=== PATIENT | female | born 1960 | race Caucasian/White ===

== ENCOUNTER → 2017-03-04 | Outpatient (CLI) | payer OTHER | LOC: FIMAGING 10:37 | PROVIDERS: ATTEND Obstetrics & Gynecology Gynecology | DX: Z12.31 Encounter for screening mammogram for malignant neoplasm of breast (principal) | CPT/HCPCS: G0202 ==

== ENCOUNTER 2017-03-14 12:07 | Emergency (ER) | payer OTHER ==
--- NOTE | 2017-03-14 12:27 | CPEKG ---
Heart Rate: 63 RR Interval: 952 P-R Interval: 144 QRSD Interval: 82 QT Interval: 412 QTC Interval: 422 P Windham: 70 QRS [place]ham: 66 T Wave [place]ham: 8 EKG Severity - NORMAL ECG - EKG Impression: SINUS RHYTHM Electronically Signed By: Ki Plascencia 14-Mar-2017 15:18:08
--- NOTE | 2017-03-14 13:14 | EDPHY ---
H & P Time Seen by Provider: 03/14/17 12:24 HPI/ROS: HPI Forgetful, visual changes. 56-year-old female by private vehicle. This patient reports that she woke up yesterday morning and felt groggy. She reports that she then realized that she had for gotten her e-mail address and other simple things that she usually remembers. She reports that through the day she did feel better and her forgetfulness resolved. She reports that then yesterday evening she developed visual symptoms which she describes as angular colored shapes with some decreased peripheral vision. She also reports having some tingling in her left upper extremity associated with these visual symptoms. She reports that she has had this identical sensation in the past associated with her migraine headaches. This then resolved. She reports that this morning she woke up again felt groggy. She reports that she then developed similar visual symptoms with left upper extremity tingling and forgetfulness. She again states that these visual symptoms and the tingling in the left upper extremity identical to previous migraine headaches that she has had. She reports however that the forgetfulness is something new as best she can recall. She reports the symptoms have now resolved she came to the emergency department for evaluation. ROS: Constitutional: No fever, no chills. As above. Eyes: No discharge. As above. ENT: No sore throat. No nasal congestion or rhinorrhea. Respiratory: No cough. No shortness of breath. Cardiac: No chest pain, no palpitations. Gastrointestinal: No abdominal pain, no vomiting, no diarrhea. Genitourinary: No hematuria. No dysuria or increased frequency with urination. Musculoskeletal: No back pain. No neck pain. No myalgias or arthralgias. Skin: No rashes. Neurological: No headache. No focal weakness or altered sensation except noted except noted. Past medical history: Colitis. Migraine headaches which she has had since childhood. Social history: Nonsmoker. No alcohol. . Physical Exam: General Appearance: Alert, no distress. This patient is responding to questions appropriately and in full sentences. This patient appears well- hydrated and well-nourished. Eyes: Pupils equal and round no pallor or injection. No lid edema, erythema or injection. No nystagmus. No photophobia. ENT, Mouth: Mucous membranes are moist. The pharyngeal tissues are unremarkable. No edema or swelling. No asymmetry suggestive of abscess. No erythema or exudates. No tongue lacerations or abrasions. Respiratory: There are no retractions, lungs are clear to auscultation with good air movement bilaterally. Cardiovascular: Regular rate and rhythm. No murmur. Gastrointestinal: Abdomen is soft and nontender, no masses, bowel sounds normal. No focal tenderness at McBurney's point. No Lawson sign. Neurological: Motor sensory function is grossly intact. Cranial nerves are normal. Gait is normal. Skin: Warm and dry, no rashes. Musculoskeletal: Neck is supple and nontender. No pain on flexion of the neck. Extremities are symmetrical. All joints range without pain or impingement. Psychiatric: No agitation. No depression. Database: EKG: EKG time is 12:24 p.m.; EKG shows a narrow complex normal sinus rhythm with a ventricular rate of 63. The OR, QRS, QT intervals are within normal limits. There are no ST-T wave changes indicative of ischemic or injury pattern. No evidence of right heart strain. Interpreted by me. Imaging: MRI of brain noncontrast: Negative. Results were discussed with staff radiologist Dr. Dwain Dallas. Procedures: Emergency department course: Vital signs reviewed and are unremarkable. She is afebrile. The patient's neurologic exam is nonfocal. She reports resolution of symptoms. I feel that TIA and CVA unlikely. Her presentation is more consistent with an a migraine syndrome and transient global amnesia. I discussed MR imaging with her. She is not sure that she wants to do this. She will call her to discuss. 1:30 a.m., the patient's is at the bedside. She would like to get an MRI of her brain for further evaluation. This has been ordered. 3:00 p.m., patient re-evaluated, repeat neurologic Assessment is nonfocal. Results of MRI discussed. She feels comfortable going home with her who is at bedside. I feel she is safe for discharge. I will have her follow up with Dr. Ferny Bell or 1 of his partners with the neurology service. Return to emergency department precautions have been reviewed with her. All of her questions were answered. She was discharged in good condition. Differential Diagnosis: The differential diagnosis on this patient includes but is not limited to migraine syndrome, transient global amnesia. CVA, TIA unlikely. This represents a partial list of diagnoses considered. These considerations are based on history, physical exam, past history, reassessment and diagnostic testing. Smoking Status: Never smoked Constitutional: Initial Vital Signs Temperature (C) 36.3 C 03/14/17 12:11 Heart Rate 66 03/14/17 12:11 Respiratory Rate 18 03/14/17 12:11 Blood Pressure 148/73 H 03/14/17 12:11 O2 Sat (%) 98 03/14/17 12:11 O2 Delivery Mode Room Air Allergies/Adverse Reactions: No Known Allergies Allergy (Unverified 07/21/12 11:12) Home Medications: Medication Instructions Recorded No Home Meds 07/21/12 Ondansetron Odt [Zofran Odt 4 mg 4 mg PO Q4PRN PRN #7 tab 07/21/12 (*)] oxyCODONE/APAP 5/325 [Percocet 1 - 2 tab PO Q4PRN PRN #11 tab 07/21/12 5/325 (*)] Medical Decision Making - Diagnostics Imaging Results: Imaging Impressions Brain MRI 03/14/17 13:30 Impression: Normal MRI of the brain without contrast. Results called to Dr. Harvey at 2:50 PM. Departure - Departure Disposition: Home, Routine, Self-Care Clinical Impression: Migraine equivalent syndrome Condition: Good Instructions: Migraine Headache (ED), Transient Global Amnesia (ED) Additional Instructions: Read and follow provided instructions. Follow-up with Neurology, Dr. Ferny Bell, or 1 of his partners in 2-3 days for re-evaluation. Return to the emergency department for worsening symptoms, worsening headache, changes in vision or other serious concerns. Referrals: Patient,NotPresent [Primary Care Provider] - As per Instructions
[2017-03-14 14:43] VITALS: PULSE 56; RESP 20; TEMP 97.9
[2017-03-14 15:40] VITALS: BP 106/62; O2SAT 96
== END 2017-03-14 15:40 | disposition home or self-care (01) ==
DX: G43.809 Other migraine, not intractable, without status migrainosus (principal)

== ENCOUNTER 2017-10-04 15:29 | Emergency (ER) | payer OTHER ==
[2017-10-04 15:52] VITALS: TEMP 98.2; O2SAT 99
--- NOTE | 2017-10-04 16:59 | EDPHY ---
H & P Stated Complaint: multiple cat bites and scratches r arm Time Seen by Provider: 10/04/17 16:58 HPI/ROS: HPI: This is a 57-year-old female who presents with Chief Complaint: multiple cat bites and scratches r arm Location: Right arm Quality: Multiple scratches and bites Duration: 1-3 hours prior to arrival Signs and Symptoms: No bleeding, no radiation, no numbness, no weakness, no tingling, no decreased range of motion, no swelling, no pain Timing: Acute Severity: [id number] Context: Patient is right-hand dominant, rescues cats in the area, was playing with her cat when he all a sudden began to attack her. He bit and scratched her right forearm. It started to bleed and patient applied direct pressure. She then washer arm with mild soap and water and applied bacitracin. She reports that the cat vaccinations are up-to-date. The cat has been aggressive before and they have decided to put the cat down. Tetanus up-to-date. Denies any paresthesias/decreased range of motion. She denies any pain. Modifying Factors: See above Comment: ROS: see HPI Constitutional: No fever, no chills, no weight loss Eyes: No blurred vision Respiratory: No shortness of breath, no cough Cardiovascular: No chest pain Gastrointestinal: No nausea, no vomiting no diarrhea Genitourinary: No dysuria Extremities: No myalgias Neurologic: No weakness, no numbness Skin: No rashes Hematologic: No bruising, no bleeding MEDICAL/SURGICAL/SOCIAL HISTORY: Medical history: Migraine headaches. Does not take any regular medications. Surgical history: Denies Social history: . CONSTITUTIONAL: Very pleasant adult white female who appears younger than stated age, awake and alert, no obvious distress HEENT: Atraumatic and normocephalic, PERRL, EOMI. Tympanic membranes clear. Oropharynx clear, no exudate and moist pink mucosa. Airway patent. No lymphadenopathy. No meningismus. Cardiovascular: Normal S1/S2, regular rate, regular rhythm, without murmur rub or gallop. PULMONARY/CHEST: Symmetrical and nontender. Clear to auscultation bilaterally. Good air movement. No accessory muscle usage. ABDOMEN: Soft, nondistended, nontender, no rebound, no guarding, no peritoneal signs, no masses or organomegaly. No CVAT. EXTREMITIES: 2/2 radial pulses, strength 5/5, 5-10 superficial scratches noted on her hand up to her forearm; 2 small bite maurice that are superficial in nature and do not require suturing; no deformities, no clubbing, no cyanosis or edema. NEUROLOGICAL: no focal neuro deficits. GCS 15. SKIN: Warm and dry, no erythema. no rash. Good capillary refill. Source: Patient Exam Limitations: No limitations - Personal History Current Tetanus/Diphtheria Vaccine: Yes - Medical/Surgical History Hx Asthma: No Hx Chronic Respiratory Disease: No Hx Diabetes: No Hx Cardiac Disease: No Hx Renal Disease: No Hx Cirrhosis: No Hx Alcoholism: No Hx HIV/AIDS: No Hx Splenectomy or Spleen Trauma: No Other PMH: migraines - Social History Smoking Status: Never smoked Constitutional: Initial Vital Signs Temperature (C) 36.8 C 10/04/17 15:49 Heart Rate 62 10/04/17 15:49 Respiratory Rate 18 10/04/17 15:49 Blood Pressure 141/73 H 10/04/17 15:49 O2 Sat (%) 99 10/04/17 15:49 O2 Delivery Mode Room Air Allergies/Adverse Reactions: No Known Allergies Allergy (Verified 10/04/17 15:49) Home Medications: Medication Instructions Recorded Amoxicillin/Clavulanate Pot 875 mg PO BID #14 tab 10/04/17 [Augmentin 875 MG TAB (*)] Medical Decision Making ED Course/Re-evaluation: Wound care provided: Cleaned with mild soap and water and irrigated copiously; bacitracin and clean sterile dressing applied. Given Augmentin Tetanus booster up-to-date Police notified. No signs of neurovascular compromise/tenting of skin/compartment syndrome/ extremities and joints examined above and below area of concern and are neurovascularly intact. This patient was seen under the supervision of my secondary supervising physician. I evaluated care for this patient independently. Differential Diagnosis: Differential diagnosis includes but is not limited to cat bite, puncture wound, abrasion, laceration. Departure - Departure Disposition: Home, Routine, Self-Care Clinical Impression: Cat scratch Cat bite Qualifiers: Encounter type: initial encounter Qualified Code(s): W55.01XA - Bitten by cat, initial encounter Condition: Good Instructions: Animal Bite (ED), Abrasion (ED) Additional Instructions: Keep the dressing dry and in place for 48 hours. After 48 hours, you may remove the dressing; wash the site daily with mild soap and water; then pat dry; apply topical antibiotic ointment and clean sterile dressing until fully healed. Take Tylenol 650 mg every 4 hours and/or Ibuprofen 600 mg every 8 hours with food as needed for pain. Take all of your Augmentin for the full 7 day course. Referrals: Dana Saini MD [Primary Care Provider] - As per Instructions Prescriptions: Amoxicillin/Clavulanate Pot [Augmentin 875 MG TAB (*)] 875 mg PO BID #14 tab
[2017-10-04] MEDS ORDERED: LET GEL TOPICAL 1 EA SYR TP ONE ×3 (17:20→17:40)
[2017-10-04] MEDS ORDERED: AMOXICILLIN/CLAVULANATE POT 875/125 MG TAB PO ONE (17:20)
[2017-10-04 18:34] VITALS: BP 132/70; PULSE 64; RESP 14
== END 2017-10-04 18:33 | disposition home or self-care (01) ==
DX: S50.811A Abrasion of right forearm, initial encounter (principal); W55.01XA Bitten by cat, initial encounter

== ENCOUNTER → 2018-06-10 | Outpatient (CLI) | payer OTHER | LOC: FIMAGING 14:10 | PROVIDERS: ATTEND Physician Assistant Medical | DX: Z12.31 Encounter for screening mammogram for malignant neoplasm of breast (principal) ==